=== PATIENT | female | born 1965 | race Caucasian/White ===

== ENCOUNTER 2020-12-29 11:29 | Outpatient (CLI) | payer BC, SELFPAY ==
--- NOTE | ~2020-12-29 | XR_ITS ---
EXAMINATION: XR knee RT 2V DATE: 12/29/2020 11:53 INDICATION: Right knee pain. TECHNIQUE: 2 views of right knee were obtained. COMPARISON: None. FINDINGS: Bone alignment is normal. No fracture. There is moderate osteoarthritis of lateral compartm ent, mild osteoarthritis of medial compartment, and severe osteoarthritis of patellofemoral compartme nt. There is a small knee joint effusion with loose bodies. IMPRESSION: 1. Severe right knee osteoarthritis. 2. Small right knee joint effusion with loose bodies. Reviewed, dictated and finalized at location A.
== END 2020-12-29 11:30 | disposition home or self-care (01) ==
LOC: ANHIMG 11:36
PROVIDERS: PCP Family Medicine; Visit Provider Nurse Practitioner Family
DX: M17.11 Unilateral primary osteoarthritis, right knee (principal); M25.461 Effusion, right knee; M23.41 Loose body in knee, right knee
CPT/HCPCS: 73560

== ENCOUNTER 2021-07-10 00:07 | Day surgery (SDC) | payer BC, SELFPAY ==
[2021-06-23 11:49] VITALS: BMI 52.4
[2021-07-10 06:54] VITALS: BP 165/89; PULSE 79; RESP 22; TEMP 36.6; O2SAT 97; BMI 53.4
[2021-07-10] MEDS: LACTATED RINGERS 1,000 ML 150 ML IV CONT (07:19)
--- NOTE | 2021-07-10 07:27 | WPDANESEPPF ---
Anes - Initial Pre Proc Eval Procedure: Operation Date: 07/10/21 08:00 Proposed Procedures p Screening Colonoscopy - Héctor Archuleta MD Date/Time: 07/10/21 07:27 Surgeon: Héctor Archuleta MD Pre Op Diagnosis: neoplasm screening Patient Data Age: 55 Gender: F Height: 1.57 m Weight: 132.5 kg Last Vital Signs Temp 36.6 C 07/10/21 06:54 Pulse 79 07/10/21 06:54 Resp 22 H 07/10/21 06:54 BP 165/89 H 07/10/21 06:54 Pulse Ox 97 07/10/21 06:54 Allergies Allergy/AdvReac Type Severity Reaction Status Date / Time No Known Allergies Allergy Mild Verified 07/10/21 06:53 Home Medications Medication Instructions Recorded Confirmed Type meloxicam 15 mg tablet See Rx Instructions PO DAILY #30 12/29/20 06/23/21 Rx tablet metoprolol succinate 100 mg 100 mg PO DAILY #90 tablet 03/30/21 06/23/21 Rx tablet,extended release 24 hr Patient hx anesthesia problems: none Family hx anesthesia problems: none Results Review: All pre-operative results and documents have been reviewed as part of the pre-operative evaluation. [facility] Past Medical History Medical History Breast cancer screening Colon cancer screening HTN (hypertension) Knee pain, right Morbid obesity with BMI of 50.0-59.9, adult Sleep apnea Surgical History Surgical History Hx of tonsillectomy Family History Family History Father Diabetes mellitus Cerebrovascular accident Mother Hypertension Grandparent Diabetes mellitus Heart disease Social History Social History Smoking status: Never smoker Alcohol intake: current Alcohol use details: rare social use Substance use: never Substance use type: does not use Living arrangements: with family Additional living arrangements comments: lives with sig other; getting in 2 days Spiritual care concerns: No Anes - Eval Final PreProcedure Day of Procedure 07/10/21 07:27 Patient weight: morbidly obese Heart: regular rate and rhythm Lungs: clear to auscultation Airway: Mallampati scale class II Neurological: alert and oriented Last oral intake: >/= 8 hours ASA classification: III Emergent: no Anesthetic plan: proceed Anesthesia type and monitoring: general GIVS and standard monitoring Results Review: All pre-operative results and documents have been reviewed as part of the pre-operative evaluation. Informed Consent: The patient's anesthetic plan and its attendant risks and benefits were discussed with the patient/family/POA. Questions were solicited and answers provided to the satisfaction of the patient/family/POA.
--- NOTE | 2021-07-10 07:47 | PM.HPGS ---
History of Present Illness History of Present Illness Consent: Risks, benefits, and alternatives have been discussed and questions answered. Patient agrees to proceed with procedure. Chief complaint: neoplasm screening Narrative: Kimberley Lucero is a 55 year old female here for first screening colonoscopy Review of Systems Constitutional: Constitutional: Denies headache(s) and Denies weakness Eyes: Eyes: Denies blurry vision ENT: Reports Normal hearing present, Denies headache(s) and Denies neck pain Cardiovascular: Cardiovascular: Denies chest pain and Denies dyspnea Respiratory: Respiratory: Denies dyspnea Gastrointestinal: Gastrointestinal: Reports no additional gastrointestinal complaints Genitourinary: Genitourinary: Denies dysuria Musculoskeletal: Musculoskeletal: Denies neck pain Integumentary/Breasts: Skin/Breast: Denies dry skin Neurologic: Reports Normal hearing present, Denies headache(s) and Denies weakness Psychiatric: Psychiatric: Denies anxiety Endocrine: Endocrine: Denies change in body appearance Hematologic/Lymphatic: Hematologic/Lymphatic: Denies easy bleeding Allergic/Immunologic: Allergic/Immunologic: Denies urticaria PMF Past Medical History Medical History Breast cancer screening Colon cancer screening HTN (hypertension) Knee pain, right Morbid obesity with BMI of 50.0-59.9, adult Sleep apnea Surgical History Surgical History Hx of tonsillectomy Family History Family History Father Diabetes mellitus Cerebrovascular accident Mother Hypertension Grandparent Diabetes mellitus Heart disease Social History Social History Smoking status: Never smoker Alcohol intake: current Alcohol use details: rare social use Substance use: never Substance use type: does not use Living arrangements: with family Additional living arrangements comments: lives with sig other; getting in 2 days Spiritual care concerns: No Meds Home Medications and Allergies Home Medications Medication Instructions Recorded Confirmed Type meloxicam 15 mg tablet See Rx Instructions PO DAILY #30 12/29/20 06/23/21 Rx tablet metoprolol succinate 100 mg 100 mg PO DAILY #90 tablet 03/30/21 06/23/21 Rx tablet,extended release 24 hr Allergies Allergy/AdvReac Type Severity Reaction Status Date / Time No Known Allergies Allergy Mild Verified 07/10/21 06:53 Vital Signs Vital Signs - 24 hr 07/10/21 06:54 Temperature 97.8 F Pulse Rate 79 Respiratory Rate 22 H Blood Pressure 165/89 H Pulse Oximetry 97 Exam Const: General: comfortable and no acute distress HENMT: General nose exam: Normal nares present Eyes: General: appearance normal, both eyes and all related structures Neck: Neck: no JVD Resp: Auscultation: clear to auscultation bilaterally Cardio: Rate: regular rate Rhythm: regular rhythm GI: Inspection: non-distended GI Palp: Yes Soft to palpation Skin: General skin exam: normal color Neuro: General: gait normal Speech: normal speech Extrem: General: normal to inspection Psych: Mental Status: mental status grossly normal Assessment and Plan Assessment and plan (1) Colon cancer screening: Code(s): Z12.11 - Encounter for screening for malignant neoplasm of colon Status: Acute Assessment and Plan: colonoscopy
[2021-07-10 08:08] VITALS: BP 97/54; PULSE 67; RESP 19; O2SAT 98
[2021-07-10 08:18] VITALS: BP 130/70; PULSE 79; RESP 17; O2SAT 98
[2021-07-10 08:28] VITALS: BP 135/84; PULSE 69; RESP 17; O2SAT 98
== END 2021-07-10 09:02 | disposition home or self-care (01) ==
PROVIDERS: PCP Nurse Practitioner Family; Visit Provider Internal Medicine Gastroenterology
PROC: 0DJD8ZZ Inspection of Lower Intestinal Tract, Via Natural or Artificial Opening Endoscopic (ICD-10-PCS; CPT 45378; principal; 2021-07-10 08:00)
DX: Z12.11 Encounter for screening for malignant neoplasm of colon (principal); K64.8 Other hemorrhoids; I10 Essential (primary) hypertension; E11.9 Type 2 diabetes mellitus without complications; G47.30 Sleep apnea, unspecified; E66.01 Morbid (severe) obesity due to excess calories; Z68.43 Body mass index [BMI] 50.0-59.9, adult
CPT/HCPCS: 45378; J2704; J7120

== ENCOUNTER 2024-05-14 06:13 | Observation (INO) | payer BC, SELFPAY ==
[2024-05-14] VITALS (21 sets, daily range): BP systolic 86–151; BP diastolic 47–85; PULSE 77–95; RESP 11–35; TEMP 36.3–36.9; O2SAT 94–99; BMI 52.8
--- NOTE | ~2024-05-14 | XR_ITS ---
EXAMINATION: XR chest 1V portable DATE: 05/14/2024 09:17 INDICATION: Shortness of breath. TECHNIQUE: A single frontal view of the chest was obtained. COMPARISON: Chest single view 04/07/2009 FINDINGS: There is no pneumonia, pleural effusion, or pneumothorax. The heart size is normal. IMPRESSION: 1. No acute cardiopulmonary disease. Reviewed, dictated and finalized at location A.
[2024-05-14] MEDS: FAMOTIDINE 20 MG/2 ML VIAL IV PUSH ×2 (07:43→20:47)
--- NOTE | 2024-05-14 08:40 | PC.NURSE ---
Pt called out and states she is having trouble breathing. This RN to bedside and pt is sitting up, holding chest and appears labored. Pt becomes diaphoretic and nauseous. MD made aware and VORB for 0.3 epi and 25mg of benadryl. MD assessed pt and additional ordered added
--- NOTE | 2024-05-14 08:43 | ECG_ITS ---
Test Date: 2024-05-14 08:47:18 Measurements Intervals Umbarger Rate: 79 P: -10 LA: 159 QRS: 24 QRSD: 92 T: 25 QT: 397 QTc: 457 Interpretive Statements SINUS RHYTHM NORMAL ECG No previous ECG available for comparison Electronically Signed On 05-14-2024 08:57:17 CDT by Kyrie Holden D.O.
[2024-05-14] MEDS: diphenhydrAMINE HCl INJ 50 MG/ML VIAL 25 MG IV PUSH (08:46)
[2024-05-14] MEDS: EPINEPHrine HCL INJ 1 MG/ML AMPUL 0.3 MG IM (08:47)
[2024-05-14 09:05] LABS: Basophils Percent Auto 0.1 % (0.2-1.2); Hematocrit 43.5 % (37.0-47.0); Immature Granulocyte Absolute 0.04 K/mm3 (0.00-0.031); Immature Granulocyte Percent A 0.3 % (0-0.5); Lymphocytes Absolute Auto 1.25 K/mm3 (0.9-3.2); Lymphocytes Percent Auto 9.9 % (18.3-44.2); Mean Corpuscular HGB Conc 34.5 g/dl (32-36); Mean Corpuscular Hemoglobin 30.5 pg (26-34); Mean Corpuscular Volume 88.4 fl (80-100); Mean Platelet Volume 9.2 fl (7.4-10.4); Monocytes Absolute Auto 0.2 K/mm3 (0.1-0.6); Monocytes Percent Auto 1.3 % (2.6-8.5); Neutrophils Absolute Auto 11.1 K/mm3 (1.3-6.7); Neutrophils Percent Auto 88.4 % (45.5-73.1); Platelet Count Result 372 k/mm3 (150-375); Red Blood Count 4.92 M/mm3 (4.2-5.4); Red Cell Distribution Width 12.3 % (11.5-14.5); White Blood Count 12.6 K/mm3 (4.5-10.0)
[2024-05-14 09:16] LABS: Alanine Aminotransferase 30 U/L (6-35); Albumin Level 4.5 g/dL (3.5-5.1); Alkaline Phosphatase 88 U/L (38-126); Anion Gap 18 mmol/L (4-12); Aspartate Amino Transferase 28 U/L (14-36); Bilirubin,Total 0.5 mg/dL (0.2-1.3); Blood Urea Nitrogen 31 mg/dL (7-17); Calcium 9.1 mg/dL (8.4-10.2); Carbon Dioxide 21 mmol/L (22-30); Chloride 97 mmol/L (98-107); Estimated CRCL calculation 81 ml/min; Estimated Glomerular Filt Rate > 60; Glucose 236 mg/dL (65-110); Potassium 4.3 mmol/L (3.4-5.0); Sodium 136 mmol/L (137-145)
[2024-05-14 09:18] LABS: Prothrombin Time 13.7 Seconds (11.1-14.7)
[2024-05-14 09:19] LABS: Partial Thromboplastin Time 23.2 Seconds (22.3-36.8)
[2024-05-14 09:31] LABS: NT Pro B Type Natriuretic Pept 33 pg/mL (19.9-100); Troponin I < 0.012 ng/mL (0.000-0.034)
--- NOTE | 2024-05-14 09:33 | ED.ALLEREA ---
HPI - Allergic Reaction General Chief complaint: Allergic Reaction Stated complaint: ANGIOEDEMA, ALLERGIC REACTION Time Seen by Provider: 05/14/24 07:05 History of Present Illness HPI narrative: Patient is a 58-year-old female who presents ER with concerns for allergic reaction. Woke up this morning with itching to her palms and soles. She then started having sensation of swelling to her tongue and lip and had some trouble speaking. EMS was called. She was given Decadron 10 mg, intramuscular epinephrine, and IV Benadryl. Patient was brought here for further evaluation. Symptoms have resolved and she is resting comfortably without rash or difficulty breathing. No swelling to her tongue or lips. Has not had similar symptoms previously. She is on no new medications. She did take her evening medications. Her last dose of lisinopril was yesterday morning. She has not had today's medications. Related Data Allergies Allergy/AdvReac Type Severity Reaction Status Date / Time No Known Allergies Allergy Mild Verified 05/14/24 06:41 Review of Systems Review of Systems: All systems reviewed & are unremarkable except as noted in HPI and below Constitutional: Constitutional: Reports no additional constitutional complaints ENT: Reports system reviewed and no additional complaints, except as documented Cardiovascular: Cardiovascular: Reports no additional cardiovascular complaints Respiratory: Respiratory: Reports no additional respiratory complaints Integumentary/Breasts: Skin/Breast: Reports erythema, Reports rash and Denies skin ulcer Allergic/Immunologic: Allergic/Immunologic: Reports lip swelling, Denies throat swelling, Reports tongue swelling and Denies wheezing PMFSH Past Medical History Medical History (Updated 05/14/24 @ 09:46 by Saad Palacios MD) Breast cancer screening Colon cancer screening Diabetes type 2, controlled Elevated fasting glucose HTN (hypertension) Hyperlipidemia Knee pain, right Morbid obesity with BMI of 50.0-59.9, adult Seasonal allergies Sleep apnea Uncontrolled type 2 diabetes mellitus Vitamin D deficiency Surgical History Surgical History Hx of tonsillectomy Family History Family History (Updated 03/10/24 @ 09:14 by Win Hawley CMA) Father Diabetes mellitus Cerebrovascular accident Mother Hypertension Grandparent Diabetes mellitus Heart disease Social History Social History Smoking status: Never smoker Alcohol intake: current Alcohol use details: rare social use Substance use: never Substance use type: does not use Lack of Transportation: No Lack of Food: Never True Current Housing: I Have Housing Concerned About Future Housing: No Difficulty Paying Gas/Electric Bills: No Difficulty Paying for Meds: No Currently Unemployed: No Education: High School Diploma/GED Difficulty w/ Childcare or Family Care: No Living arrangements: with family Additional living arrangements comments: lives with sig other; getting in 2 days Spiritual care concerns: No Exam Narrative: GENERAL: Well-appearing, morbidly obese, and in no acute distress. HEAD: Normocephalic, atraumatic. EYES: PERRL and EOMI. ENT: Mucous membranes moist. Normal tongue and lips. Normal posterior oropharynx. NECK: Supple. CHEST: Clear to auscultation. No respiratory distress. HEART: Regular rate and rhythm. Normal peripheral pulses. ABDOMEN: Soft, nontender, nondistended. EXTREMITIES: Normal range of motion. No edema. SKIN: Warm, dry, no rash. NEURO: Alert and oriented x3. PSYCH: Normal mood and affect. Course Course Emergency Course: During observation. Patient had recurrence of itching to her ears/hands/feet. She then became short of breath became hypotensive. She recede a 2nd dose of epinephrine 0.3 mg intramuscularly. Blood
--- NOTE | 2024-05-14 11:24 | PC.NURSE ---
This patient, Kimberley Lucero, was admitted to Intensive Care Unit-1. Patient/family oriented to hospital policies and general routines including ID bracelet, bed and alarms, visiting hours, pain management, procedures, bathroom and other care routines, personal items, smoking policy, room service/diet, and visiting hours. Information on how to activate the Rapid Response Team has been discussed. Patient/Family are encouraged to report perceived risks to care and to ask questions if they do not understand what they are told or what they should do.
--- NOTE | 2024-05-14 11:35 | WPDCNINT ---
Assessment and Plan Assessment and plan (1) Anaphylaxis: Code(s): T78.2XXA - Anaphylactic shock, unspecified, initial encounter Status: Acute Assessment and Plan: Clinically it appears the patient had anaphylaxis reaction although the etiology is unclear. Systemic allergic symptoms suggest a sedated to not be the etiology. Patient did had episode of hypotension in the ER. She received IV fluid bolus and IV fluids will be continued She received a dose of steroids and epinephrine Continue Solu-Medrol Continue Pepcid, p.r.n. albuterol and p.r.n. Benadryl ICU monitoring Clear liquid diet (2) Diabetes type 2, controlled: Code(s): E11.9 - Type 2 diabetes mellitus without complications Status: Acute Assessment and Plan: Hold metformin. Start sliding scale insulin for monitoring and treatment of hyperglycemia (3) HTN (hypertension): Code(s): I10 - Essential (primary) hypertension Status: Acute Assessment and Plan: Hold antihypertensive medications as patient a hypotensive episode in the ER (4) Hyperlipidemia: Code(s): E78.5 - Hyperlipidemia, unspecified Status: Acute Assessment and Plan: Continue statin (5) Chest tightness: Code(s): R07.89 - Other chest pain Status: Acute Assessment and Plan: Episode of chest tightness likely secondary to epinephrine. Continue serial troponins. EKG was normal (6) Leukocytosis: Code(s): D72.829 - Elevated white blood cell count, unspecified Status: Acute Assessment and Plan: Likely secondary to stress response. Chest x-ray is negative. Check UA microscopy and reflex culture if needed Plan DVT prophylaxis -SCD Stress ulcer prophylaxis -Pepcid Nutrition -clear liquid diet Code Status - Full Code Paraprofessional Aide Teacher Consult Note Consult date: 05/14/24 Reason for consult: Anaphylaxis HPI: Kimberley Lucero is a 58 year old female past medical history of diabetes, hyperlipidemia and hypertension who presented to ER this morning with allergic reaction. Patient states that she was feeling well she went to bed last night. She ate bread and chicken which she has had in the past. No wine or alcohol intake. She woke up around 4:00 a.m. with itching of her feet which then spread to her palms. She then felt itchy in skull face. She felt her voice was muffled. She she looked herself in the mirror and felt puffy. She got concerned and called her family members who brought her to the ER. She never had any hoarse voice chest pain or shortness of breath. Her blood sugar was checked on the way but she is not sure what the number was. She was given epinephrine by EMS. On arrival to ER patient had episode of hypotension and recurrence of symptoms. She also had 1 bowel movement which was loose but she states that she commonly has loose bowel movements from her metformin. She did not take any new medications or antibiotics recently. In the ER she received another dose of epinephrine steroids and IV fluid bolus. Patient is being now admitted to ICU close monitoring. At this time she feels much better and has some itching on her palms but mother symptoms have resolved. Patient denies fever, chest pain, shortness of breath, cough, nausea vomiting, abdominal pain,, diarrhea, headache or constipation. No stridor hoarseness of voice or difficulty breathing at this time. No chest pain or shortness of breath. No abdominal pain. All other systems were reviewed and were negative Review of Systems Review of Systems: All systems reviewed & are unremarkable except as noted in HPI and below (HPI) [facility] Past Medical History Medical History Breast cancer screening Colon cancer screening Diabetes type 2, controlled Elevated fasting glucose HTN (hypertension) Hyperlipidemia Knee pain, right Morbid obesity with BMI of 50.0-59.9, adult Seasonal allergies
[2024-05-14 12:02] LABS: Troponin I < 0.012 ng/mL (0.000-0.034)
--- NOTE | 2024-05-14 12:19 | PM.IMHP ---
H&P: HPI History of Present Illness Date/Time: 05/14/24 12:19 Chief Complaint: Allergic Reaction Narrative: 58 y/o F presents here with an allergic reaction with PMH of DM2, HTN, HLD, sleep apnea, and vitamin-D deficiency. The patient presents here from home via EMS for further evaluation of an allergic reaction. The patient reports that she woke up around 4:00 a.m. with itching to her palms. Shortly thereafter the itching spread to her scalp. Patient reports that her voice took on a muffled/mushy quality and her face appeared puffy in the mirror. Patient also endorsed tongue swelling, hives, and mild difficulty swallowing (states it did not feel right and she had to think about swallowing prior to doing it like when you have a sore throat, but this was not painful). Patient then became concerned and called EMS. EMS administered an epinephrine IM, Decadron 10 mg, and Benadryl 50 mg prior to arrival. When patient arrived to the emergency department her symptoms had largely resolved and she was given famotidine IVP. 2 hours after arrival to the emergency department the patient had a recurrence of symptoms. Initially began with itching to feet and then became diffuse followed by an episode of shortness of breath, chest tightness, wheezing, and hypotension (86/70). Patient was then given intramuscular epinephrine, 25 mg of Benadryl, and 60 mg of Solu-Medrol. Patient reports prior to developing symptoms early this morning, she had felt well when she went to bed. She reports eating bread and chicken for dinner that she has had previously. Denies any new medications, shampoos/conditioners, soaps, laundry detergent, OTC medications/supplements, exposures to new animals. The patient has been on Lisinopril for a few years without SEs. The patient currently denies shortness of breath, itching, muffled or hoarse voice, chest pain, shortness of breath, N/V, or fever. Initial VS at presentation: 97.4? F, HR 84, RR 16, 127/47, and 98% on RA. ED workup showed: WBC 12.6, no anemia, gap 18, creatinine 0.9 and GFR >60, initial glucose 236, initial troponin negative. CXR showed no acute cardiopulmonary disease. Review of Systems Review of Systems: All systems reviewed & are unremarkable except as noted in HPI and below PMFSH Past Medical History Medical History Diabetes type 2, controlled Elevated fasting glucose HTN (hypertension) Hyperlipidemia Knee pain, right Morbid obesity with BMI of 50.0-59.9, adult Primary osteoarthritis of right knee Seasonal allergies Sleep apnea Uncontrolled type 2 diabetes mellitus Vitamin D deficiency Surgical History Surgical History Hx of tonsillectomy Family History Family History Father Diabetes mellitus Cerebrovascular accident Mother Hypertension Grandparent Diabetes mellitus Heart disease Social History Social History Smoking status: Never smoker Alcohol intake: never Alcohol use details: rare social use Substance use: never Substance use type: does not use Do You Feel Safe in your Home?: Yes Lack of Transportation: No Lack of Food: Never True Current Housing: I Have Housing Concerned About Future Housing: No Difficulty Paying Gas/Electric Bills: No Difficulty Paying for Meds: No Currently Unemployed: No Education: Decline to Answer Difficulty w/ Childcare or Family Care: Decline to Answer Living arrangements: with family Additional living arrangements comments: lives with sig other; getting in 2 days Spiritual care concerns: No Meds Home Medications and Allergies Home Medications Medication Instructions Recorded Confirmed Type atorvastatin 20 mg tablet 20 mg PO DAILY #90 tabs 10/14/23 05/14/24 Rx
[2024-05-14] MEDS: LACTATED RINGERS 1,000 ML 100 ML IV CONT ×2 (12:29→22:37)
[2024-05-14] MEDS: methylPREDNISolone SOD SUCC 125 MG VIAL 60 MG IV PUSH ×2 (12:29→20:47)
[2024-05-14] MEDS: INSULIN ASPART (*BKC) 100 UNITS/ML SUB-Q ×2 (12:31→20:47)
[2024-05-14 12:41] LABS: Glucose Point of Care 221 mg/dl (65-105)
[2024-05-14 14:51] LABS: Add Urine Microscopic? YES; Appearance Urine Clear (Clear); Bacteria Urine None Seen /hpf; Bilirubin Urine Negative (Negative); Blood Urine Negative (Negative); Color Urine Yellow (Yellow); Glucose Urine UA Trace mg/dL (Negative); Ketones Urine Negative (Negative); Leukocyte Esterase Ur Trace LEU/UL (Negative); Nitrate Urine Negative (Negative); Non Pathogenic Casts 0-2; Protein Urine Negative (Negative); RBC Urine 0-2 /hpf (0-2); Specific Grav Ur 1.006 (1.001-1.035); Squamous Epithelial Cell Urine None Seen /hpf (Few); Urobilinogen Urine 0.2 mg/dL (<2.0); WBC Urine 0-5 /hpf (0-3); pH Urine 5.5 (5.0-9.0)
[2024-05-14 15:25] LABS: Troponin I < 0.012 ng/mL (0.000-0.034)
[2024-05-14 17:30] LABS: Glucose Point of Care 199 mg/dl (65-105)
[2024-05-14 20:57] LABS: Glucose Point of Care 214 mg/dl (65-105)
[2024-05-14] MEDS: ACETAMINOPHEN 500 MG TABLET 1000 MG PO (22:36)
[2024-05-15] VITALS (12 sets, daily range): BP systolic 112–148; BP diastolic 62–90; PULSE 75–93; RESP 14–20; TEMP 36.2–37.1; O2SAT 94–97
[2024-05-15] MEDS: methylPREDNISolone SOD SUCC 125 MG VIAL 60 MG IV PUSH (04:28)
[2024-05-15 04:45] LABS: Hematocrit 38.6 % (37.0-47.0); Mean Corpuscular HGB Conc 33.7 g/dl (32-36); Mean Corpuscular Hemoglobin 29.8 pg (26-34); Mean Corpuscular Volume 88.5 fl (80-100); Mean Platelet Volume 9.4 fl (7.4-10.4); Platelet Count Result 242 k/mm3 (150-375); Red Blood Count 4.36 M/mm3 (4.2-5.4); Red Cell Distribution Width 12.2 % (11.5-14.5); White Blood Count 8.7 K/mm3 (4.5-10.0)
[2024-05-15 04:55] LABS: Alanine Aminotransferase 27 U/L (6-35); Albumin Level 4.1 g/dL (3.5-5.1); Alkaline Phosphatase 69 U/L (38-126); Anion Gap 10 mmol/L (4-12); Aspartate Amino Transferase 22 U/L (14-36); Bilirubin,Total 0.7 mg/dL (0.2-1.3); Blood Urea Nitrogen 22 mg/dL (7-17); Calcium 9.2 mg/dL (8.4-10.2); Carbon Dioxide 27 mmol/L (22-30); Chloride 99 mmol/L (98-107); Estimated CRCL calculation 89 ml/min; Estimated Glomerular Filt Rate > 60; Glucose 209 mg/dL (65-110); Magnesium 1.8 mg/dL (1.6-2.3); Potassium 4.2 mmol/L (3.4-5.0); Sodium 136 mmol/L (137-145)
--- NOTE | 2024-05-15 09:02 | WPDINTPN ---
Progress Note: A&P Assessment and Plan (1) Anaphylaxis: Qualifiers: Encounter type: initial encounter Qualified Code(s): T78.2XXA - Anaphylactic shock, unspecified, initial encounter Code(s): T78.2XXA - Anaphylactic shock, unspecified, initial encounter Status: Acute Assessment and Plan: Clinically it appears the patient had anaphylaxis reaction although the etiology is unclear. Systemic allergic symptoms suggest a LAURA-inhibitor induced angioedema to not be the etiology. Patient did had episode of hypotension in the ER. She received IV fluid bolus and IV fluids were continued. Will DC IV fluids today She received a dose of steroids and epinephrine and steroids were continued through the night Patient is clinically improved and will discontinue Pepcid, p.r.n. albuterol and p.r.n. Benadryl Advance diet Resume her medications Transfer out of ICU today (2) Diabetes type 2, controlled: Qualifiers: Diabetes mellitus jail insulin use: without longshore equipment operator use Diabetes mellitus complication status: without complication Qualified Code(s): E11.9 - Type 2 diabetes mellitus without complications Code(s): E11.9 - Type 2 diabetes mellitus without complications Status: Chronic Assessment and Plan: Resume metformin. Continue sliding scale insulin for monitoring and treatment of hyperglycemia Patient is now off of steroids and I expect blood sugars to improve (3) HTN (hypertension): Qualifiers: Hypertension type: primary hypertension Qualified Code(s): I10 - Essential (primary) hypertension Code(s): I10 - Essential (primary) hypertension Status: Chronic Assessment and Plan: Resume HCTZ and metoprolol (4) Hyperlipidemia: Code(s): E78.5 - Hyperlipidemia, unspecified Status: Inactive Assessment and Plan: Continue statin (5) Chest tightness: Code(s): R07.89 - Other chest pain Status: Acute Assessment and Plan: Episode of chest tightness likely secondary to epinephrine. Negative serial troponins. EKG was normal (6) Leukocytosis: Code(s): D72.829 - Elevated white blood cell count, unspecified Status: Acute Assessment and Plan: Likely secondary to stress response. Chest x-ray and UA negative. Plan DVT prophylaxis -SCD patient will be ambulating Stress ulcer prophylaxis -Pepcid Nutrition -consistent carbohydrate diet Code Status - Full Code Transfer out ICU today Subjective Date/time seen: 05/15/24 Overnight events reviewed. Afebrile On room air Patient states she had some headache last night and required Tylenol. Denies any other complaints. Insert review of systems. All other systems were reviewed and were negative. Blood pressures improved and patient is now on the hypertensive Sinus rhythm on the monitor. Other Vitals acceptable Good urine output. Tolerating clear liquid diet. Review of Systems Review of Systems: All systems reviewed & are unremarkable except as noted in HPI and below (HPI) Exam Narrative: General: Pt is alert awake and in NAD Lungs/Chest: Trachea central Clear BS B/L, No crackles or wheezing. No stridor or respiratory distress Cardiac: RRR. Normal S1 S2. No murmurs Circulation: Pedal pulses are intact and symmetrical. Abdomen: Normal bowel sounds.. Diabetes Soft. NT. ND. Extremities: No clubbing, cyanosis or edema. Warm : Harmon in place Neurologic: Follows commands. Moves all 4 extremities PERRL Skin: No Rash HEENT: No swelling of tongue noticed Objective Data Vital Signs Vital Signs: Vital Signs - 24 hr 05/14/24 09:30 05/14/24 09:40 05/14/24 09:54 Temperature Pulse Rate 95 95 Respiratory Rate 31 H 35 H Blood Pressure Pulse Oximetry 97 94 95 Oxygen Delivery Room Air 05/14/24 10:00 05/14/24 10:15 05/14/24 12:00 Temperature Pulse Rate 94 84 87 Respiratory Rate 28 H 17 Blood Pressure Pulse O
[2024-05-15] MEDS: metFORMIN HCL XR 500 MG TAB.SR.24H PO ×2 (09:37→17:37)
[2024-05-15] MEDS: INSULIN ASPART (*BKC) 100 UNITS/ML SUB-Q ×2 (09:38→11:41)
[2024-05-15] MEDS: OMEGA 3 POLYUNSAT FATTY ACIDS 1 GM CAP 2 GM PO ×2 (09:39→17:37)
[2024-05-15] MEDS: METOPROLOL SUCCINATE EXT REL 100 MG TABCR PO (09:39)
[2024-05-15] MEDS: hydroCHLOROthiazide 25 MG TABLET PO (09:39)
[2024-05-15 09:48] LABS: Glucose Point of Care 220 mg/dl (65-105)
[2024-05-15 11:39] LABS: Glucose Point of Care 252 mg/dl (65-105)
[2024-05-15 16:44] LABS: Glucose Point of Care 170 mg/dl (65-105)
[2024-05-15 19:30] LABS: Glucose Point of Care 254 mg/dl (65-105)
[2024-05-15] MEDS: ATORVASTATIN 20 MG TABLET PO (20:19)
[2024-05-16 00:12] LABS: Glucose Point of Care 145 mg/dl (65-105)
[2024-05-16 06:00] VITALS: BP 149/91; PULSE 73; RESP 20; TEMP 37.2; O2SAT 98
[2024-05-16 07:02] LABS: Hematocrit 38.5 % (37.0-47.0); Hemoglobin 13.1 g/dL (12.0-15.0); Mean Corpuscular Hemoglobin 30.5 pg (26-34); Mean Corpuscular Volume 89.7 fl (80-100); Mean Platelet Volume 9.5 fl (7.4-10.4); Platelet Count Result 251 k/mm3 (150-375); Red Blood Count 4.29 M/mm3 (4.2-5.4); Red Cell Distribution Width 12.7 % (11.5-14.5)
[2024-05-16 07:16] LABS: Alanine Aminotransferase 26 U/L (6-35); Alkaline Phosphatase 63 U/L (38-126); Anion Gap 12 mmol/L (4-12); Aspartate Amino Transferase 21 U/L (14-36); Bilirubin,Total 0.5 mg/dL (0.2-1.3); Blood Urea Nitrogen 22 mg/dL (7-17); Calcium 9.4 mg/dL (8.4-10.2); Carbon Dioxide 29 mmol/L (22-30); Chloride 97 mmol/L (98-107); Estimated CRCL calculation 81 ml/min; Estimated Glomerular Filt Rate > 60; Glucose 141 mg/dL (65-110); Magnesium 1.9 mg/dL (1.6-2.3); Potassium 4.2 mmol/L (3.4-5.0); Sodium 138 mmol/L (137-145)
[2024-05-16 07:33] LABS: Glucose Point of Care 123 mg/dl (65-105)
--- NOTE | 2024-05-16 08:03 | PM.IMPN ---
Progress Note: A&P Assessment and Plan (1) Leukocytosis: Code(s): D72.829 - Elevated white blood cell count, unspecified Status: Acute (2) Chest tightness: Code(s): R07.89 - Other chest pain Status: Acute (3) Anaphylaxis: Qualifiers: Encounter type: initial encounter Qualified Code(s): T78.2XXA - Anaphylactic shock, unspecified, initial encounter Code(s): T78.2XXA - Anaphylactic shock, unspecified, initial encounter Status: Acute (4) Uncontrolled type 2 diabetes mellitus: Status: Acute (5) Diabetes type 2, controlled: Qualifiers: Diabetes mellitus complication status: without complication Diabetes mellitus penitentiary insulin use: without technician terminal and repeater use Qualified Code(s): E11.9 - Type 2 diabetes mellitus without complications Code(s): E11.9 - Type 2 diabetes mellitus without complications Status: Chronic (6) HTN (hypertension): Qualifiers: Hypertension type: primary hypertension Qualified Code(s): I10 - Essential (primary) hypertension Code(s): I10 - Essential (primary) hypertension Status: Chronic (7) Sleep apnea: Code(s): G47.30 - Sleep apnea, unspecified Status: Acute (8) Breast cancer screening: Code(s): Z12.39 - Encounter for other screening for malignant neoplasm of breast Status: Acute (9) Colon cancer screening: Code(s): Z12.11 - Encounter for screening for malignant neoplasm of colon Status: Acute Plan 58 y/o F presents here with an allergic reaction with PMH of DM2, HTN, HLD, sleep apnea, and vitamin-D deficiency. The patient presents here from home via EMS for further evaluation of an allergic reaction. The patient reports that she woke up around 4:00 a.m. with itching to her palms. Shortly thereafter the itching spread to her scalp. Patient reports that her voice took on a muffled/mushy quality and her face appeared puffy in the mirror. Patient also endorsed tongue swelling, hives, and mild difficulty swallowing (states it did not feel right and she had to think about swallowing prior to doing it like when you have a sore throat, but this was not painful). (1) Anaphylaxis: Qualifiers: Encounter type: initial encounter Qualified Code(s): T78.2XXA - Anaphylactic shock, unspecified, initial encounter Code(s): T78.2XXA - Anaphylactic shock, unspecified, initial encounter Status: Acute Assessment and Plan: Clinically it appears the patient had anaphylaxis reaction although the etiology is unclear. Systemic allergic symptoms suggest a LAURA-inhibitor induced angioedema to not be the etiology. Patient did had episode of hypotension in the ER. patient received fluid resuscitation, IV steroid, epinephrine, Benadryl, Pepcid She received a dose of steroids and epinephrine and steroids were continued through the night now patient is hemodynamically stable. angioedema has resolved. afebrile (2) Diabetes type 2, controlled: Qualifiers: Diabetes mellitus penitentiary insulin use: without penitentiary use Diabetes mellitus complication status: without complication Qualified Code(s): E11.9 - Type 2 diabetes mellitus without complications Code(s): E11.9 - Type 2 diabetes mellitus without complications Status: Chronic Assessment and Plan: Resume metformin. received sliding scale insulin for monitoring and treatment of hyperglycemia discharge home with home medication, follow with PCP for medication adjustment (3) HTN (hypertension): Qualifiers: Hypertension type: primary hypertension Qualified Code(s): I10 - Essential (primary) hypertension Code(s): I10 - Essential (primary) hypertension Status: Chronic Assessment and Plan: Resume HCTZ and metoprolol discontinue lisinopril p.o. avoid LAURA inhibitors follow-up with PCP for medication adjustment (4) Hyperlipidemia:
--- NOTE | 2024-05-16 08:09 | PM.DS ---
DS: Admitting Diagnosis Discharge Date 05/16/24 Admitting Diagnosis (1) Leukocytosis: Code(s): D72.829 - Elevated white blood cell count, unspecified Status: Acute (2) Chest tightness: Code(s): R07.89 - Other chest pain Status: Acute (3) Anaphylaxis: Qualifiers: Encounter type: initial encounter Qualified Code(s): T78.2XXA - Anaphylactic shock, unspecified, initial encounter Code(s): T78.2XXA - Anaphylactic shock, unspecified, initial encounter Status: Acute (4) Uncontrolled type 2 diabetes mellitus: Status: Acute (5) Diabetes type 2, controlled: Qualifiers: Diabetes mellitus complication status: without complication Diabetes mellitus longterm insulin use: without terminal carman use Qualified Code(s): E11.9 - Type 2 diabetes mellitus without complications Code(s): E11.9 - Type 2 diabetes mellitus without complications Status: Chronic (6) HTN (hypertension): Qualifiers: Hypertension type: primary hypertension Qualified Code(s): I10 - Essential (primary) hypertension Code(s): I10 - Essential (primary) hypertension Status: Chronic (7) Sleep apnea: Code(s): G47.30 - Sleep apnea, unspecified Status: Acute (8) Breast cancer screening: Code(s): Z12.39 - Encounter for other screening for malignant neoplasm of breast Status: Acute (9) Colon cancer screening: Code(s): Z12.11 - Encounter for screening for malignant neoplasm of colon Status: Acute DS: Discharge Diagnosis Discharge Diagnosis (1) Leukocytosis: Code(s): D72.829 - Elevated white blood cell count, unspecified Status: Acute (2) Chest tightness: Code(s): R07.89 - Other chest pain Status: Acute (3) Anaphylaxis: Qualifiers: Encounter type: initial encounter Qualified Code(s): T78.2XXA - Anaphylactic shock, unspecified, initial encounter Code(s): T78.2XXA - Anaphylactic shock, unspecified, initial encounter Status: Acute (4) Uncontrolled type 2 diabetes mellitus: Status: Acute (5) Diabetes type 2, controlled: Qualifiers: Diabetes mellitus complication status: without complication Diabetes mellitus terminal carman insulin use: without terminal carman use Qualified Code(s): E11.9 - Type 2 diabetes mellitus without complications Code(s): E11.9 - Type 2 diabetes mellitus without complications Status: Chronic (6) HTN (hypertension): Qualifiers: Hypertension type: primary hypertension Qualified Code(s): I10 - Essential (primary) hypertension Code(s): I10 - Essential (primary) hypertension Status: Chronic (7) Sleep apnea: Code(s): G47.30 - Sleep apnea, unspecified Status: Acute (8) Breast cancer screening: Code(s): Z12.39 - Encounter for other screening for malignant neoplasm of breast Status: Acute (9) Colon cancer screening: Code(s): Z12.11 - Encounter for screening for malignant neoplasm of colon Status: Acute DS: Summary Hospital Course Hospital Course: Per H&P, 58 y/o F presents here with an allergic reaction with PMH of DM2, HTN, HLD, sleep apnea, and vitamin-D deficiency. The patient presents here from home via EMS for further evaluation of an allergic reaction. The patient reports that she woke up around 4:00 a.m. with itching to her palms. Shortly thereafter the itching spread to her scalp. Patient reports that her voice took on a muffled/mushy quality and her face appeared puffy in the mirror. Patient also endorsed tongue swelling, hives, and mild difficulty swallowing (states it did not feel right and she had to think about swallowing prior to doing it like when you have a sore throat, but this was not painful). the following med issues have been addressed during hospitalization (1) Anaphylaxis: Qualifiers: Encounter type: initial encounter Qualif
[2024-05-16 08:33] VITALS: PULSE 73
[2024-05-16] MEDS: metFORMIN HCL XR 500 MG TAB.SR.24H PO (08:33)
[2024-05-16] MEDS: OMEGA 3 POLYUNSAT FATTY ACIDS 1 GM CAP 2 GM PO (08:33)
[2024-05-16] MEDS: hydroCHLOROthiazide 25 MG TABLET PO (08:33)
[2024-05-16] MEDS: METOPROLOL SUCCINATE EXT REL 100 MG TABCR PO (08:33)
[2024-05-16 09:47] VITALS: O2SAT 97
== END 2024-05-16 11:30 | disposition home or self-care (01) ==
LOC: ANHED 09:46 → ANHICU 15:24 → ANH3MEDSUR 05-16 08:18 → ANHICU 05-18 08:05
PROVIDERS: Internal Medicine; Admitting Provider Internal Medicine; Emergency Provider Emergency Medicine; PCP Nurse Practitioner Family; Visit Provider Hospitalist
DX: T78.2XXA Anaphylactic shock, unspecified, initial encounter (principal); T78.3XXA Angioneurotic edema, initial encounter; R07.89 Other chest pain; D72.829 Elevated white blood cell count, unspecified; I10 Essential (primary) hypertension; E78.5 Hyperlipidemia, unspecified; E11.9 Type 2 diabetes mellitus without complications; E55.9 Vitamin D deficiency, unspecified; G47.30 Sleep apnea, unspecified; E66.01 Morbid (severe) obesity due to excess calories; Z68.43 Body mass index [BMI] 50.0-59.9, adult; Z79.84 Long term (current) use of oral hypoglycemic drugs; Z79.85 Long-term (current) use of injectable non-insulin antidiabetic drugs
CPT/HCPCS: 36415; 71045; 80053; 81001; 82948; 83735; 83880; 84484; 85025; 85027; 85610; 85730; 93005; 96361; 96372; 96374; 96375; 96376; 99285; A9270; G0378; J0171; J1200; J1815; J2919; J7120

== ENCOUNTER 2024-06-12 15:48 | Emergency (ER) | payer BC, SELFPAY ==
[2024-06-12] VITALS (10 sets, daily range): BP systolic 120–145; BP diastolic 67–98; PULSE 98–112; RESP 13–23; O2SAT 94–97
--- NOTE | 2024-06-12 16:14 | ED.ALLEREA ---
HPI - Allergic Reaction General Chief complaint: Allergic Reaction Stated complaint: allergic reaction Time Seen by Provider: 06/12/24 15:59 History of Present Illness HPI narrative: Patient presents after she had an episode earlier in the day when she woke up feeling like her hands were itching, she took a Benadryl and symptoms got better, but then the hives came back and she started having sensation of itching to her throat, and wheezing and GI upset. Gave herself an EpiPen and symptoms completely resolved. Denies any complaints right now. Only came in because her doctor told her to. No idea which may be allergic to Related Data Allergies Allergy/AdvReac Type Severity Reaction Status Date / Time lisinopril Allergy Swelling Verified 06/12/24 16:24 of Lip/Tongue/Throat Review of Systems Review of Systems: All systems reviewed & are unremarkable except as noted in HPI and below PMFSH Past Medical History Medical History (Updated 06/12/24 @ 16:10 by Sahara Agarwal MD) Diabetes type 2, controlled Elevated fasting glucose HTN (hypertension) Hyperlipidemia Knee pain, right Morbid obesity with BMI of 50.0-59.9, adult Primary osteoarthritis of right knee Recurrent periodic urticaria Seasonal allergies Sleep apnea Uncontrolled type 2 diabetes mellitus Vitamin D deficiency Surgical History Surgical History Hx of tonsillectomy Family History Family History Father Diabetes mellitus Cerebrovascular accident Mother Hypertension Grandparent Diabetes mellitus Heart disease Social History Social History Smoking status: Never smoker Alcohol intake: never Alcohol use details: rare social use Substance use: never Substance use type: does not use Do You Feel Safe in your Home?: Yes Lack of Transportation: No Lack of Food: Never True Current Housing: I Have Housing Concerned About Future Housing: No Difficulty Paying Gas/Electric Bills: No Difficulty Paying for Meds: No Currently Unemployed: No Education: Decline to Answer Difficulty w/ Childcare or Family Care: Decline to Answer Living arrangements: with family Additional living arrangements comments: lives with sig other; getting in 2 days Spiritual care concerns: No Exam Narrative: EXAMINATION OF ORGAN SYSTEMS/BODY AREAS: Constitutional: Vital signs per nursing GENERAL:[No acute distress, non-toxic appearing.] HEAD: Normal with no signs of head trauma. EYES: EOMI, conjunctiva normal ENT: Clear voice, no swelling to lips or tongue LUNGS: Nonlabored breathing. HEART: [Regular rate and rhythm] ABD: [Soft], [nontender to palpation] EXT: Normal range of motion SKIN: [No rashes or lesions.] NEURO: [Alert and oriented x 3. No gross focal sensory or strength deficits.] PSYCH: Normal affect Course Vital Signs Vital signs: Vital Signs Pulse Rate 112 H 06/12/24 15:57 Respiratory Rate 23 H 06/12/24 15:57 Pulse Oximetry 97 06/12/24 15:57 Pulse Rate 99 06/12/24 16:46 Respiratory Rate 19 06/12/24 16:46 Blood Pressure 142/80 H 06/12/24 16:46 Pulse Oximetry 95 06/12/24 16:46 MDM - Allergic Reaction MDM Narrative Medical decision making narrative: MEDICAL DECISION MAKING AND COURSE IN THE ED WITH INTERPRETATION/REVIEW OF DIAGNOSTIC STUDIES: Electronic medical record was reviewed. Patient presented to the ED with a complaint of [possible allergic reaction]. Vitals [were within acceptable limits]. Physical exam revealed well-appearing patient with no rash, no signs of airway compromise, speak with clear voice. [Patient was given Claritin, famotidine, steroids]. She gave her epi to herself about 4 hours ago, so I only felt like needed watch her for about an hour here, she continues to be well-appearing
[2024-06-12] MEDS: FAMOTIDINE 20 MG TABLET PO (16:22)
[2024-06-12] MEDS: LORATADINE 10 MG TABLET PO (16:22)
[2024-06-12] MEDS: dexAMETHasone 2 MG TABLET 10 MG PO (16:22)
== END 2024-06-12 16:53 | disposition home or self-care (01) ==
LOC: ANHED 16:13
PROVIDERS: Emergency Provider Emergency Medicine; PCP Nurse Practitioner Family
DX: T78.2XXA Anaphylactic shock, unspecified, initial encounter (principal); E11.9 Type 2 diabetes mellitus without complications; I10 Essential (primary) hypertension; E78.5 Hyperlipidemia, unspecified; E66.01 Morbid (severe) obesity due to excess calories; Z68.43 Body mass index [BMI] 50.0-59.9, adult; E55.9 Vitamin D deficiency, unspecified
CPT/HCPCS: 99283; A9270; J8540

== ENCOUNTER 2024-11-20 09:52 | Outpatient (CLI) | payer BC, SELFPAY ==
--- NOTE | ~2024-11-20 | MM_ITS ---
EXAMINATION: MM screening [facility] BI w todd HISTORY: Screening TECHNIQUE: Craniocaudal and mediolateral oblique 3-D tomosynthesis images were obtained and synthetic 2-D images were generated. CAD analysis was submitted and interpreted. COMPARISON: No prior mammogram is available for comparison at this institution. BREAST PARENCHYMAL COMPOSITION: Not dense: There are scattered areas of fibroglandular density. FINDINGS: There is no evidence of suspicious mass, calcification, or architectural distortion to sugg est malignancy in either breast. There has been no suspicious interval change. IMPRESSION: 1. No mammographic evidence of malignancy. 2. Recommend routine screening mammography in one year. BI-RADS Category 1: Negative Reviewed, dictated and finalized at location B.
--- OUTSIDE RECORDS SUMMARY | 2024-11-20 10:57 | XMS_ITS | Clinical Summary ---
Author Organization [facility] Address [address] [place] [address] Care Team Providers Care Hat Trimmer Name Role Phone Isha Liu MD Primary Care Provider [phone] Source Comments [facility],non-owned Affiliates and Associated Physician Practices is amultiple site organization consisting of ambulatory clinics and hospital sitesin [place], [place], [place] and [place]. This disclosure is being madepursuant to the Care Everywhere program and may not contain all information available regarding this patient. Last updated 18.[employer] [facility] Allergies No known active allergies Medications * Be aware that medications may not be up to date on this document. Alwaysverify current medications with the patient. Medication Sig Dispensed Refills Start Date End Date Status METOPROLOL & DIET MANAGE PROD PO Active Family History Medical History Relation Name Comments Diabetes Father Stroke Father Relation Name Status Comments Father Social History Tobacco Use Types Packs/Day Years Used Date Smoking Tobacco: Never Sex and Gender Information Value Date Recorded Sex Assigned at Not on file Gender Identity Not on file Sexual Orientation Not on file Last Filed Vital Signs Vital Sign Reading Time Taken Comments Blood Pressure 126/82 05/29/2016 5:11 PM CDT Pulse 83 05/29/2016 5:11 PM CDT Temperature 37 C (98.6 F) 05/29/2016 5:11 PM CDT Respiratory Rate 16 05/29/2016 5:11 PM CDT Oxygen Saturation 98% 05/29/2016 5:11 PM CDT Inhaled Oxygen Concentration - - Weight 122.5 kg (270 lb) 05/29/2016 5:11 PM CDT Height 157.5 cm (5' 2 ) 05/29/2016 5:11 PM CDT Body Mass Index 49.38 05/29/2016 5:11 PM CDT Plan of Treatment Health Maintenance Due Date Last Done Comments COLOGUARD (AGES 45-75) - COL ON CA SCREENING 1967 COLON MONITORING 1967 COLONOSCOPY - COLON CA SCREENING 1967 CT COLONOGRAPHY - COLON CA SCREENING 1967 Colorectal Cancer Screening 1967 FIT - COLON CA SCREENING 1967 FLEX SIG - COLON CA SCREENING 1967 LIPID TESTING 1967 MAMMOGRAM 1967 PAP SMEAR 1967 HIV SCREENING 12/24/1982 HEPATITIS C SCREENING 12/20/1985 DTAP/TDAP/TD VACCINES (1 - Tdap) 12/24/1986 HEPATITIS B VACCINE (1 of 3 - 19+ 3-dose series) 12/24/1986 PNEUMOCOCCAL VACCINE 50+ (1 of 1 - PCV) 12/24/2017 ZOSTER VACCINE (1 of 2) 12/24/2017 COVID-19 VACCINE (1 - 2023-2 5 season) 2024 INFLUENZA VACCINE (#1) 2024 DEPRESSION SCREENING 09/02/2024 HIB VACCINE Aged Out No longer eligi ble based on patient's age to complete this topic HPV VACCINE Aged Out No longer eligi ble based on patient's age to complete this topic MENINGOCOCCAL (Group B) VACC INE SHARED DECISION-MAKING Aged Out No longer eligibl e based on patient's age to complete this topic MENINGOCOCCAL GROUPS A/C/Y/W VACCINE Aged Out No longer eligible b ased on patient's age to complete this topic PNEUMOCOCCAL VACCINE Aged Out No long er eligible based on patient's age to complete this topic Care Teams Hat Trimmer Relationship Specialty Start Date End Date Isha Liu MD [address] [place] [address] [place] [id number] PCP - General Emergency Medicine 05/29/16
== END 2024-11-20 09:53 | disposition home or self-care (01) ==
LOC: ANHIMG 09:53
PROVIDERS: PCP Nurse Practitioner Family; Visit Provider Nurse Practitioner Family
DX: Z12.31 Encounter for screening mammogram for malignant neoplasm of breast (principal)
CPT/HCPCS: 77063; 77067